=== PATIENT | male | born 1985 | race Caucasian/White ===

== ENCOUNTER 2019-11-22 23:00 | Emergency (ER) | payer MEDICAID, OTHER ==
--- NOTE | 2019-11-22 23:38 | EDM.PDOC ---
ED HPI GENERAL MEDICAL PROBLEM - General Stated Complaint: ASTHMAS, SOB; DRUNK FEELING Time Seen by Provider: 11/22/19 23:38 Source of Information: Reports: Patient History Limitations: Reports: No Limitations - History of Present Illness INITIAL COMMENTS - FREE TEXT/NARRATIVE: 34-year-old male who reports that through the day he has had feelings of shortness of breath and he has felt that his inhaler isn't really helping with this. He also has developed nausea and headache which came on from 7:00 on and he has noticed that he has had a fever developing. He feels hot all over and he has diffuse body aches. He is rating his pain as a 7/10. It does not radiate. It is throbbing and pounding and aching. [place] aches are diffuse and they are also throbbing and pounding and aching. He feels extremely tired and washed out. He has had some sneezing and he has had some nasal congestion. He does not feel that his taste or smell has altered. He has had no hemoptysis. There has been no vomiting and no diarrhea. His is here with abdominal pain, diarrhea and fever and his son has fever. All of their symptoms began today as well. There are no other associated signs or symptoms. There are no other modifying factors. Onset: Today (Mild symptoms earlier in the day and worse from 7 PM on.) Duration: Getting Worse Location: Reports: Head, Generalized Quality: Reports: Ache, Throbbing, Other (Pounding) Severity: Moderate (to severe) Improves with: Reports: Rest Worsens with: Reports: Other (Activity), Movement Context: Reports: Other (As above) Associated Symptoms: Reports: Fever/Chills, Headaches, Loss of Appetite, Malaise, Nausea/Vomiting, Shortness of Breath Treatments V[employer]IDENT [employer]: Reports: Other (see below) (Nothing.) - Related Data Allergies Allergy/AdvReac Type Severity Reaction Status Date / Time penicillin Allergy Cannot Verified 12/24/14 14:48 Remember Home Meds: Home Meds Promethazine [Phenergan] 25 mg PO Q6H PRN #12 tab 11/23/19 [Rx] Past Medical History Respiratory History: Reports: Asthma Immunologic History: Reports: Other (See Below) (Allergies) - Past Surgical History Dermatological Surgical History: Reports: Other (See Below) (Several lipomas removed.) Social & Family History - Tobacco Use Smoking Status *Q: Former Smoker (Quit 3 years ago) - Alcohol Use Alcohol Use History: Yes Alcohol Use Frequency: Weekly - Living Situation & Occupation Living situation: Reports: ED ROS GENERAL - Review of Systems Review Of Systems: See Below Constitutional: Reports: Fever, Malaise, Weakness HEENT: Reports: Other (Nasal congestion and sneezing.) Respiratory: Reports: Shortness of Breath, Cough Cardiovascular: Reports: No Symptoms GI/Abdominal: Reports: Nausea. Denies: Vomiting : Reports: No Symptoms Musculoskeletal: Reports: Other (Diffuse body aches) Skin: Denies: Diaphoresis, Rash Neurological: Reports: Headache Hematologic/Lymphatic: Reports: No Symptoms Immunologic: Reports: No Symptoms ED EXAM, GENERAL - Physical Exam Exam: See Below Exam Limited By: No Limitations General Appearance: Alert, WD/WN, Moderate Distress (Appears uncomfortable. There is no respiratory distress.) Eye Exam: Bilateral Eye: EOMI, Normal Inspection (Sclera are anicteric.), PERRL Ears: Normal External Exam, Hearing Grossly Normal Ear Exam: Bilateral Ear: Auricle Normal Nose: Nasal Drainage Throat/Mouth: Normal Inspection, Normal Oropharynx, Normal Voice, No Airway Compromise Head: Atraumatic, Normocephalic Neck: Normal Inspection, Supple, Non-Tender, Full Range of Motion Respiratory/Chest: No Respiratory Distress, Lungs Clear, Normal Breath Sounds, No Accessory Muscle Use, Chest Non-Tender, Other (Good air movement. No wheezes.) Cardiovascular: Normal Peripheral Pulses, Regular Rate, Rhythm, No Murmur Peripheral Pulses: 2+: Radial (L), Radial (R), Dorsalis Pedis (L), Dorsalis Pedis (R) GI/Abdominal: Normal Bowel Sounds, Soft, Non-Tender, No Mass Back Exam: Normal Inspection, Full Range of Motion Extremities: Normal Inspection, Normal Range of Motion, Non-Tender, No Pedal [place] ma, Normal Capillary Refill Neurological: Alert, Oriented, CN II-XII Intact, Normal Cognition, No Motor/Sensory Deficits Skin Exam: Warm, Dry, Intact, Normal Color, No Rash Course - Orders/Labs/Meds Orders: Active Orders 24 hr Category Date Time Status CORONAVIRUS COVID-19, MADELIN Routine Lab 11/23/19 01:10 Received INPATIENT Routine Lab 11/23/19 01:10 Received Meds: Medications Discontinued Medications Generic Name Dose Route Start Last Admin Trade Name Ching PRN Reason Stop Dose Admin Acetaminophen 1,000 mg 11/23/19 00:22 11/23/19 00:42 Tylenol Extra Strength PO 11/23/19 00:23 1,000 mg ONETIME ONE Administration Promethazine HCl 25 mg 11/23/19 00:23 11/23/19 00:42 Phenergan PO 11/23/19 00:24 25 mg ONETIME ONE Administration - Radiology Interpretation Free Text/Narrative:: Chest x-ray PA and lateral shows no acute disease. - Re-Assessments/Exams Free Text/Narrative Re-Assessment/Exam: 11/23/19 02:35: The patient feels improved. He still has a slight tachycardia with a pulse rate in the 100-110 range. His headache is decreasing. He reports that his nausea is resolved and after the inhaler usage with a spacer that we provided him, he feels his breathing is better as well. His O2 saturations remained in the 100% on room air. Chest x-ray was normal. He no longer feels weak or dizzy. His blood pressure was stable. I did send testing for COVID 19 and it was the send out PCR test. He is stable for discharge at this point. Treatment will be symptomatic and I will give him prescription for Phenergan to help with any nausea the may have. He should use his inhaler as needed with a spacer to make it more effective. He should increase his fluid intake. And he may take Tylenol 1000 mg by mouth every 6 hours as needed for fever or pain. Precautions and reasons for return to the emergency department were discussed with the patient while he was in the emergency department and were detailed in his discharge instructions. Departure - Departure Time of Disposition: 03:05 Disposition: Home, Self-Care 01 Condition: Good (Improved) Clinical Impression: Acute febrile illness, Viral syndrome Asthma Qualifiers: Asthma severity: moderate Asthma persistence: persistent Asthma complication type: unspecified Qualified Code(s): J45.40 - Moderate persistent asthma, uncomplicated - Discharge Information Prescriptions: Promethazine [Phenergan] 25 mg PO Q6H PRN #12 tab PRN Reason: Nausea/Vomiting Instructions: How to Use a Metered Dose Inhaler, Viral Illness, Adult, Fever, Adult, [id number] Referrals: Amelia Dos Santos, MUFF WINDER [Primary Care Provider] - Additional Instructions: Your chest x-ray was normal. Your oxygen saturation was normal. You should use the Buol inhaler with the spacer that we provided you to make the inhaler more effective. He should increase your fluid intake. You should rest. He may take Tylenol 1000 mg by mouth every 6 hours as needed for fever or pain. Medication as prescribed (Phenergan 25 mg). We did send testing for Covid 19. This test we'll not be back until the middle or the end of next week at the earliest. In the meantime, you should isolate and self quarantined until the Covid test is back back to the emergency department for worse breathing, unrelenting vomiting, progressive weakness or any other concerning sign or symptom. - My Orders Last 24 Hours: My Active Orders 11/23/19 01:10 CORONAVIRUS COVID-19, MADELIN Routine INPATIENT Routine - Assessment/Plan Last 24 Hours: My Active Orders 11/23/19 01:10 CORONAVIRUS COVID-19, MADELIN Routine INPATIENT Routine
[2019-11-23] MEDS ORDERED: Acetaminophen 500 MG Tab PO ONE (00:22)
[2019-11-23] MEDS ORDERED: Promethazine 25 MG Tab PO ONE (00:23)
--- NOTE | 2019-11-23 10:24 | CR ---
INDICATION: Shortness of breath, fever. CHEST, TWO VIEWS: PA and lateral views of the chest were obtained 11/23/19 - no comparisons. The heart, mediastinum, and bony thorax were unremarkable. There is question of some very minimal patchy infiltration in the posterolateral superior segment of the right lower lobe. This could represent a minimal patchy pneumonia and should be correlated clinically. Additionally, there is suggestion of mild degree of bronchial wall cuffing at the lung bases, which may represent active peribronchial disease - correlate clinically. No gross consolidating pneumonia or effusion was identified. IMPRESSION: Question possibility of minimal patchy pneumonia in the superior segment of the right lower lobe. Additionally, there is mild bronchial wall cuffing at the lung bases which could represent active peribronchial disease and should be correlated clinically. MTDD
[2019-12-03 01:57] VITALS: BP 116/73; PULSE 95
== END 2019-11-23 03:35 | disposition home or self-care (01) ==
LOC: FB.ED 23:00
DX: J45.40 Moderate persistent asthma, uncomplicated (principal); B34.9 Viral infection, unspecified; Z20.828 Contact with and (suspected) exposure to other viral communicable diseases; Z87.891 Personal history of nicotine dependence; Z88.0 Allergy status to penicillin
CPT/HCPCS: 71046; 87635; 99283; 99284; A9270; U0002